=== PATIENT | female | born 2000 | race Caucasian/White ===

== ENCOUNTER 2025-01-11 18:58 | Emergency (ER) | payer SELFPAY ==
[2025-01-11 19:05] VITALS: BP 131/91
[2025-01-11 19:44] LABS: Hematocrit 39.6 % (37.0-47.0); Hemoglobin 13.9 g/dL (12.0-16.0); Mean Corp Hgb Conc. 35.1 g/dL (33.0-37.0); Mean Corpuscular Volume 80.8 fL (81.0-99.0); Nucleated Red Blood Cells % 0 %; Platelet Count 401 10^3/uL (130-400); Red Cell Dist. Width 12.9 % (11.5-14.5)
[2025-01-11 19:55] LABS: HCG, Serum Qualitative Screen Negative
[2025-01-11 20:04] LABS: ALT (SGPT) 24 U/L (0-35); AST (SGOT) 22 U/L (14-36); Albumin 5.0 g/dl (3.5-5.0); Alkaline Phosphatase 96 U/L (38-126); Blood Urea Nitrogen 11 mg/dl (7-17); Calcium 10.5 mg/dl (8.4-10.2); Carbon Dioxide 23 mmol/L (22-30); Chloride 103 mmol/L (98-107); Glucose 104 mg/dl (70-99); Lipase 125 U/L (23-300); Potassium 3.7 mmol/L (3.5-5.1); Sodium 134 mmol/L (135-145); Total Protein 8.4 g/dl (6.3-8.2); eGFR > 60.00
--- NOTE | 2025-01-11 21:54 | ED.GENMED ---
History of Present Illness
General
Chief Complaint: Exposure-Chemical
Source: patient
Exam Limitations: none
Time Seen by Provider: 01/11/25 21:43
Nursing documentation reviewed up to this point in time: agreed with
History of Present Illness
History of Present Illness:
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 She reports she was in the room for several hours and then started
vomiting from 6 to 8 PM. She vomited multiple times from 6 to 8 PM. She did feel weakness at that time. She currently is feeling improvement. She denies any current difficulty breathing.
Phy Exam
General Physical Exam
General Presentation: no apparent distress
General age: appears stated age
General Skin: warm and dry
General Habitus: normal
General Mental: alert
General Hydration: appears well hydrated
Cardiovascular Exam
Cardiovascular Exam: regular rate/rhythm, no murmur and normal peripheral pulses
Pulmonary Exam
Pulmonary Exam: lungs clear and no respiratory distress
Neurological Exam
Neurological Exam: alert and oriented x3
Musculoskeletal Exam
Musculoskeletal Exam: full ROM
Skin Exam
Skin Exam: normal color and warm/dry
Psychiatric Exam
Psychiatric Exam: normal mood/affect
Course
Orders/Labs/Results
Orders:
Orders
01/11/25 19:09
Test Result ONCE
01/11/25 19:38
Complete Blood Count/With Diff Urgent
Comprehensive Metabolic Panel Urgent
HCG, Serum Qualitative Screen Urgent
Lipase Urgent
01/11/25 21:54
Ondansetron Injectable [Zofran] 4 mg IV NOW STA
01/11/25 21:56
0.9% Sodium Chloride 1000 ml [Nss] 1,000 ml IV BOLUS
Abnormal Lab Results
01/11/25
19:38
WBC 11.6 H 10^3/uL
(4.8-10.8)
MCV 80.8 L fL
(81.0-99.0)
Plt Count 401 H 10^3/uL
(130-400)
Abs Immat Gran (auto) 0.1 H 10^3/uL
(0-0.05)
Absolute Neuts (auto) 8.8 H 10^3/uL
(1.4-6.5)
Absolute Monos (auto) 0.7 H 10^3/uL
(0.1-0.6)
Neutrophils % 75.6 H %
(42.2-75.2)
Lymphocytes % 15.6 L %
(20.5-51.1)
Sodium 134 L mmol/L
(135-145)
Glucose 104 H mg/dl
(70-99)
Calcium 10.5 H mg/dl
(8.4-10.2)
Total Protein 8.4 H g/dl
(6.3-8.2)
01/11/25 19:38
01/11/25 19:38
Vital Signs
Initial and Last Documented VS:
Initial Vital Signs
Temp Pulse Resp BP Pulse Ox
97.9 F 92 18 131/91 100
01/11/25 19:05 01/11/25 19:05 01/11/25 19:05 01/11/25 19:05 01/11/25 19:05
Last Documented Vital Signs
Temp Pulse Resp BP Pulse Ox
97.9 F 92 18 131/91 98
01/11/25 19:05 01/11/25 19:05 01/11/25 19:05 01/11/25 19:05 01/11/25 22:10
MDM/Problems Addressed
Differential Diagnosis Includes:
Not limited to chemical exposure, nausea vomiting
MDM/Problems Addressed:
Patient is a 24-year-old female that presented to the ER for evaluation. Patient reports she was exposed to a very strong chemical for couple hours and then started to vomit she denies any difficulty breathing. She presented awake alert no acute
distress lungs are nonhypoxic nontachycardic. Patient was given fluids and nausea medicine feeling much better vital signs were stable here in the ER she is able to tolerate fluids and stable for discharge home
*Pulse Oximetry
SaO2: 100
Oxygen Mode of Delivery: Room air
Patient hypoxic: no
*Critical Care Note
Total Time (30-74mins, 75-104mins- exclusive of procedures): Not Applicable
ED Attending Note
-
Portions of this chart may have been created with voice recognition software.� Occasional wrong word or��sound alike� substitutions may have occurred due to the inherent limitations of voice recognition software.
Discharge Plan
Departure
Patient Disposition: Home (Routine Discharge)
Date of Disposition: 01/11/25
Time of Disposition: 23:05
Patient with high blood pressure during this ER visit?: Yes
Condition: Fair
Covid-19: Not Applicable
Discharge Problem:
Chemical exposure, Nausea & vomiting
Instructions: Nausea and vomiting in adults - ED (DC), BLOOD PRESSURE
Referrals:
NONE,* [Family Provider, Internal Medicine]
Activity Restrictions/Additional Instructions:
As discussed follow-up with family doctor in the next several days
return if any worsening of symptoms.
Interventions
Interventions:
*Risk Screen - Suicide Last Done: 01/11/25 19:05
*General Assessment Last Done: 01/11/25 19:05
*Neglect/Abuse Screening Last Done: 01/11/25 22:08
*ED- Fall Risk Assessment Last Done: 01/11/25 22:08
*ED COVID-19 Vaccine History Last Done: 01/11/25 22:08
*ED Influenza Vaccine History Last Done: 01/11/25 22:08
ED- Pulmonary Assessment Last Done: 01/11/25 22:10
ED-Skin Assessment Last Done: 01/11/25 22:10
Discharge Date and Time
Print Language: [place]
[2025-01-11] MEDS: ZOFRAN 4 MG IV (22:07)
[2025-01-11] MEDS: NSS 1000 IV (22:07)
[2025-01-11 22:08] VITALS: BMI 32.5
[2025-01-11 23:14] VITALS: BP 147/70
== END 2025-01-11 23:28 | disposition home or self-care (01) ==
LOC: EMR 18:58
PROVIDERS: EMERGENCY PHYSICIAN Student in an Organized Health Care Education/Training Program
DX: R11.2 Nausea with vomiting, unspecified (principal); Z77.098 Contact with and (suspected) exposure to other hazardous, chiefly nonmedicinal, chemicals; R03.0 Elevated blood-pressure reading, without diagnosis of hypertension
CPT/HCPCS: 99284; 96374; 96361; 80053; 83690; 84703; 85025